=== PATIENT | female | born 1980 | race Caucasian/White ===

== ENCOUNTER 2019-12-24 16:16 | Observation (INO) | payer MEDICARE, MEDICAID ==
[2019-12-24] MEDS ORDERED: KETOROLAC TROMETHAMINE 60 MG/2 ML SDV IM ONE (16:28)
--- NOTE | 2019-12-24 16:36 | ER Document Report ---
ED Medical Screen (RME) - General Chief Complaint: Ankle Pain Stated Complaint: ANKLE INJURY Time Seen by Provider: 12/24/19 16:22 Mode of Arrival: Wheelchair Information source: Patient Notes: 39-year-old female presents with complaints of right ankle pain. Reports she was swinging when the swing broke and she fell on her ankle. Complains of severe right ankle pain reports she has not been able to walk on it. Denies history of past injury to the ankle. Medial swelling noted, deformity I have greeted and performed a rapid initial assessment of this patient. A comprehensive ED assessment and evaluation of the patient, analysis of test results and completion of the medical decision making process will be conducted by additional ED providers. - Related Data Allergies/Adverse Reactions: morphine Allergy (Verified 12/24/19 16:28) Past Medical History - Social History Chew tobacco use (# tins/day): No Frequency of alcohol use: None Drug Abuse: None Physical Exam - Vital signs Vitals: Temp Pulse Resp BP Pulse Ox 98.1 F 112 H 18 147/95 H 97 12/24/19 16:18 12/24/19 16:18 12/24/19 16:18 12/24/19 16:18 12/24/19 16:18 Course - Vital Signs Vital signs: Temp Pulse Resp BP Pulse Ox 98.1 F 112 H 18 147/95 H 97 12/24/19 16:18 12/24/19 16:18 12/24/19 16:18 12/24/19 16:18 12/24/19 16:18
[2019-12-24] MEDS ORDERED: OXYCODONE-ACETAMINOPHEN 5-325 MG TABLET PO ONE (16:42)
[2019-12-24] MEDS ORDERED: ONDANSETRON 4 MG TAB.RAPDIS PO ONE (16:42)
--- NOTE | 2019-12-24 17:12 | RADIOLOGY REPORT (SQ) ---
EXAM DESCRIPTION: ANKLE RIGHT COMPLETE IMAGES COMPLETED DATE/TIME: 12/24/2019 3:45 pm REASON FOR STUDY: right ankle injury COMPARISON: None. NUMBER OF VIEWS: Three views. TECHNIQUE: AP, lateral, and oblique radiographic images acquired of the right ankle. LIMITATIONS: None. FINDINGS: MINERALIZATION: Normal. BONES: There is an acute oblique fracture through the distal fibula metaphysis. Acute horizontal fra cture through the distal medial malleolus. Widening at the medial and lateral malleoli. JOINTS: There is a large ankle joint effusion. SOFT TISSUES: Soft tissue swelling. OTHER: No other significant finding. IMPRESSION: Acute fracture dislocation through the distal fibula and medial malleolus with widening of the medial and lateral ankle mortise space. No significant angulation. TECHNICAL DOCUMENTATION: JOB ID: [id number] 2010 [employer]- All Rights Reserved Reading location - IP/workstation name: [email or web address]
[2019-12-24] MEDS ORDERED: OXYCODONE HCL IR 5 MG TABLET PO PRN (19:34)
[2019-12-24] MEDS ORDERED: MORPHINE SULFATE 10 MG/ML INJ IV PRN (19:37)
--- NOTE | 2019-12-24 20:46 | ER Document Report ---
Entered by FIDELIA ORDOÑEZ SCRIBE 12/24/19 1811 Acting as scribe for:ADEN DODSON MD ED General - General Chief Complaint: Ankle Pain Stated Complaint: ANKLE INJURY Time Seen by Provider: 12/24/19 16:22 Mode of Arrival: Wheelchair Information source: Patient Notes: This 39-year-old female presents to the emergency department complaining of right ankle pain that began about 3 hours ago. Patient said that she was swinging with her 4-year-old son when the swing broke on the downswing going forward. Patient said that she landed on her right ankle and she heard a couple of "pops". She said that her had to pull the van around and she "scooted into the van". Patient has not been able to walk since the incident. Patient denies loss of consciousness or hitting her head. - Related Data Allergies/Adverse Reactions: morphine Allergy (Verified 12/24/19 16:28) Past Medical History - General Information source: Patient - Social History Smoking Status: Never Smoker Cigarette use (# per day): No Chew tobacco use (# tins/day): No Frequency of alcohol use: None Drug Abuse: None Lives with: Family Family History: Reviewed & Not Pertinent Patient has suicidal ideation: No Patient has homicidal ideation: No - Medical History Medical History: Negative Past Surgical History: Reports: Hx Section - x2, Hx Cholecystectomy, Hx Hysterectomy - partial, Hx Orthopedic Surgery Review of Systems - Review of Systems Constitutional: No symptoms reported EENT: No symptoms reported Cardiovascular: No symptoms reported Respiratory: No symptoms reported Gastrointestinal: No symptoms reported Genitourinary: No symptoms reported Female Genitourinary: No symptoms reported Musculoskeletal: See HPI, Deformity - Right ankle, Ankle swelling, Other - Ankle pain Skin: No symptoms reported Hematologic/Lymphatic: No symptoms reported Neurological/Psychological: See HPI. denies: Lost consciousness -: Yes All other systems reviewed and negative Physical Exam - Vital signs Vitals: Temp Pulse Resp BP Pulse Ox 98.1 F 112 H 18 147/95 H 97 12/24/19 16:18 12/24/19 16:18 12/24/19 16:18 12/24/19 16:18 12/24/19 16:18 - Notes Notes: Physical Exam: General: Alert, appears uncomfortable. HEENT: Normocephalic. Atraumatic. PERRL. Extraocular movements intact. Oropharynx clear. Neck: Supple. Non-tender. Respiratory: No respiratory distress. Clear and equal breath sounds bilaterally. Cardiovascular: Regular rate and rhythm. Abdominal: Obese. Non-tender. No distension. Normal Bowel Sounds. Back: No gross abnormalities. Extremities: Upper extremities: Normal inspection. Normal ROM. Lower extremities: No edema. Right lateral malleolus ankle deformity with associated pain to touch and swelling. Limited range of motion secondary to pain in right ankle with the ability to have dorsiflexion and plantar flexion movement. Normal ROM in LLE. Neurological: Normal cognition. AAOx4. Normal speech. Psychological: Normal affect. Normal Mood. Skin: Warm. Dry. Normal color. Course - Re-evaluation Re-evalutation: 12/24/19 20:39 Patient resting comfortably with right foot elevated on pillow. Noted swelling bilateral at the ankle joint with limited range of motion in flexion and extension. No open wounds. Pulse present dorsalis pedis in the right foot. 12/24/19 20:44 Case discussed with who had decided that patient should be admitted to the hospital for inpatient management and surgery in a.m. - Vital Signs Vital signs: Temp Pulse Resp BP Pulse Ox 98.8 F 94 18 105/55 L 98 12/24/19 18:38 12/24/19 18:38 12/24/19 16:18 12/24/19 18:38 12/24/19 18:38 12/24/19 20:40 Vital signs are stable. - Diagnostic Test Radiology reviewed: Image reviewed, Reports reviewed Radiology results interpreted by me: 12/24/19 20:40 Chest x-ray no acute process Right ankle shows fracture dislocation of the ankle joint of the distal lateral malleolus and medial malleolus. Ankle mortise is widened. Procedures - Immobilization Right Posterior Leg Pre-Proc Neuro Vasc Exam: Normal Immobilizer type: Posterior ankle, Sugar tong Performed by: RN Post-Proc Neuro Vasc Exam: Normal Alignment checked and good: No Discharge - Discharge Clinical Impression: Displaced bimalleolar fracture of right ankle Condition: Good Disposition: ADMITTED INPATIENT Admitting Provider: alma Unit Admitted: Surgical Floor I personally performed the services described in the documentation, reviewed and edited the documentation which was dictated to the scribe in my presence, and it accurately records my words and actions.
--- NOTE | 2019-12-24 21:43 | RADIOLOGY REPORT (SQ) ---
EXAM DESCRIPTION: AP portable radiograph of the chest CLINICAL HISTORY: 39 years Female, Pre-op fracture repair COMPARISON: None. FINDINGS: Lungs: Lungs are clear. No pneumonia or edema. No pneumothorax or pleural effusion. Mediastinum: Cardiac and mediastinal silhouette are normal. Bones: Osseous structures are normal. IMPRESSION: Unremarkable single view of the chest
[2019-12-24 22:39] LABS: HEMATOCRIT 40.1 % (36.0-47.0); MEAN CORPUSCULAR HEMOGLOBIN 33.1 pg (27.0-33.4); MEAN CORPUSCULAR VOLUME 95 fl (80-97); PLATELET COUNT 263 10^3/uL (150-450); RED BLOOD COUNT 4.23 10^6/uL (3.72-5.28); RED CELL DISTRIBUTION WIDTH 12.6 % (11.5-14.0); WHITE BLOOD COUNT 11.5 10^3/uL (4.0-10.5)
[2019-12-24 23:00] LABS: ANION GAP 6 (5-19); BLOOD UREA NITROGEN 12 mg/dL (7-20); CALCIUM 9.3 mg/dL (8.4-10.2); CARBON DIOXIDE 27 mmol/L (22-30); CHLORIDE 104 mmol/L (98-107); GLUCOSE 102 mg/dL (75-110); POTASSIUM 4.2 mmol/L (3.6-5.0)
[2019-12-24] MEDS ORDERED: ACETAMINOPHEN 650 MG SUPP.RECT PR PRN ×2 (23:45→23:54)
[2019-12-24] MEDS ORDERED: LORAZEPAM INJ 2 MG/1 ML VIAL IV PRN (23:45)
--- NOTE | 2019-12-24 23:45 | PDOC CONSULTATION ---
Consultation Consult Date: 12/24/19 Attending physician:: ASHU PEREZ JR Provider Consulted: MARLA TONEY Consult reason:: Preoperative medical clearance History of Present Illness Admission Date/PCP: 12/24/19 20:01 Patient complains of: Right ankle pain History of Present Illness: DIEGO RODRIGEZ is a 39 year old female who presented to the emergency room with a 3-hour history of right ankle pain. She was enjoying swimming with her son when the swing broke and she landed on her right ankle causing it to twist awkwardly and make popping sounds. She was unable to bear weight on the right ankle but otherwise sustained no obvious injury. Her right ankle pain is a nonradiating severe sharp grinding in the ankle area. The pain is worsened by movement or attempts at weightbearing and partially relieved by rest and elevation. She denies other associated or accompanying signs and symptoms. She denies prior similar episodes. She has not identified any additional aggravating or ameliorating factors for her right ankle pain. In the emergency room she was found to have a bimalleolar fracture with displacement and broadening of the mortise of the right ankle. Dr. Perez has seen the patient and is planning to perform surgery to repair the fracture tomorrow. Patient is being seen in consultation for Dr. Perez to establish medical clearance for the surgical procedure. Past Medical History Cardiac Medical History: Denies: Atrial Fibrillation, Coronary Artery Disease, DVT, Hyperlipidema, Hypertension, Pulmonary Embolism Pulmonary Medical History: Denies: Asthma, Chronic Obstructive Pulmonary Disease (COPD) EENT Medical History: Reports: Eyes - Wears prescription lenses Denies: Cataracts, Ears - Hearing aids Neurological Medical History: Denies: Hemorrhagic CVA, Ischemic CVA, Seizures Endocrine Medical History: Reports: Obesity Denies: Diabetes Mellitus Type 1, Diabetes Mellitus Type 2, Hyperthyroidism, Hypothyroidism Renal/ Medical History: Denies: Chronic Kidney Disease, Nephrolithiasis Malignancy Medical History: Reports: None GI Medical History: Denies: Cirrhosis, Crohn's Disease, Gastroesophageal Reflux Disease, Hepatitis, Peptic Ulcer Disease, Ulcerative Colitis Musculoskeltal Medical History: Reports: Other - Sciatica following back surgery Denies: Arthritis, Fibromyalgia, Gout Skin Medical History: Denies: Eczema, Psoriasis Psychiatric Medical History: Denies: Alcohol Dependency, Substance Abuse, Tobacco Dependency Traumatic Medical History: Reports: None Hematology: Denies: Anemia, Bleeding Tendencies Infectious Medical History: Reports: None Past Surgical History Past Surgical History: Reports: Section - x2, Cholecystectomy, Hysterectomy - partial, Orthopedic Surgery - Back surgery Social History Information Source: Patient Lives with: Family, Spouse/Significant other Smoking Status: Former Smoker Electronic Cigarette use?: No Frequency of Alcohol Use: Occasional Hx Recreational Drug Use: No Drugs: None Hx Prescription Drug Abuse: No - Advance Directive Resuscitation Status: Full Code Surrogate healthcare decision maker:: Eliezer Rodrigez Family History Family History: Malignancy. denies: Arthritis, CAD, CVA, DM, Hyperlipidemia, Hypertension, Thyroid Disfunction Parental Family History Reviewed: Yes Children Family History Reviewed: No Sibling(s) Family History Reviewed.: Yes Medication/Allergy Home Medications: No Home Medications 12/24/19 Allergies/Adverse Reactions: morphine Allergy (Verified 12/24/19 16:28) Review of Systems Constitutional: ABSENT: chills, fever(s) Eyes: ABSENT: visual disturbances, other - Eye pain Ears: ABSENT: hearing changes, other - Ear pain Nose, Mouth, and Throat: ABSENT: headache(s), sore throat Cardiovascular: ABSENT: chest pain, palpitations Respiratory: ABSENT: cough, dyspnea Gastrointestinal: ABSENT: abdominal pain, constipation, diarrhea, nausea, vomiting Genitourinary: ABSENT: dysuria, hematuria Musculoskeletal: ABSENT: back pain, joint swelling, muscle weakness Integumentary: ABSENT: pruritus, rash Neurological: ABSENT: confusion, convulsions, focal weakness, memory loss, syncope Psychiatric: ABSENT: anxiety, depression Endocrine: ABSENT: cold intolerance, heat intolerance, polydipsia, polyphagia, polyuria Hematologic/Lymphatic: ABSENT: easy bleeding, easy bruising Allergic/Immunologic: ABSENT: seasonal rhinorrhea Physical Exam Vital Signs: Temp Pulse Resp BP Pulse Ox 97.7 F 86 16 136/82 H 97 12/24/19 21:46 12/24/19 21:46 12/24/19 21:46 12/24/19 21:46 12/24/19 21:46 Intake & Output 12/22/19 12/23/19 12/24/19 23:59 23:59 23:59 Weight 92.986 kg General appearance: PRESENT: no acute distress, cooperative, obese Head exam: PRESENT: atraumatic, normocephalic Eye exam: ABSENT: conjunctival injection, scleral icterus Ear exam: PRESENT: normal external ear exam. ABSENT: bleeding, drainage Mouth exam: PRESENT: dry mucosa, neck supple Neck exam: ABSENT: thyromegaly, tracheal deviation Respiratory exam: PRESENT: clear to auscultation yoselin, symmetrical, unlabored Cardiovascular exam: PRESENT: RRR. ABSENT: clicks, gallop, rubs Pulses: PRESENT: normal radial pulses, normal dorsalis pedis pul Vascular exam: PRESENT: normal capillary refill. ABSENT: pallor GI/Abdominal exam: PRESENT: normal bowel sounds, soft. ABSENT: tenderness Rectal exam: PRESENT: deferred Extremities exam: PRESENT: joint swelling - Right ankle, tenderness - Right ankle Musculoskeletal exam: PRESENT: deformity - Right ankle, tenderness - Right ankle. ABSENT: ambulatory - Secondary to pain Neurological exam: PRESENT: alert, oriented to person, oriented to place, o riented to time, oriented to situation, CN II-XII grossly intact. ABSENT: motor sensory deficit Psychiatric exam: PRESENT: appropriate affect, normal mood Skin exam: PRESENT: dry, intact, warm. ABSENT: jaundice, rash, urticaria Results Impressions: Ankle X-Ray 12/24/19 16:27 IMPRESSION: Acute fracture dislocation through the distal fibula and medial malleolus with widening of the medial and lateral ankle mortise space. No significant angulation. Chest X-Ray 12/24/19 19:29 IMPRESSION: Unremarkable single view of the chest Assessment and Plan - Diagnosis (1) Displaced bimalleolar fracture of right ankle Qualifiers: Encounter type: initial encounter Fracture type: closed Qualified Code(s): S82.841A - Displaced bimalleolar fracture of right lower leg, initial encounter for closed fracture Is this a current diagnosis for this admission?: Yes (2) Acute right ankle pain Is this a current diagnosis for this admission?: Yes (3) Leukocytosis Qualifiers: Leukocytosis type: unspecified Qualified Code(s): D72.829 - Elevated white blood cell count, unspecified Is this a current diagnosis for this admission?: Yes (4) Sciatica of left side associated with disorder of lumbar spine Is this a current diagnosis for this admission?: Yes (5) Obesity (BMI 30-39.9) Is this a current diagnosis for this admission?: Yes - Plan Summary Summary: Patient has been admitted to the surgical floor and is receiving routine supportive and symptomatic cares. Dr. Perez will be planning to take the patient to surgery in the morning for repair of her displaced bimalleolar right ankle fracture. I will treat the patient's pain with Dilaudid 0.5 to 2 mg IV every 2 hours using a sliding scale for dosing. Patient will also receive Ativan 2 mg IV every 4 hours as needed for muscle spasm "charley horses" or sciatica symptoms of the left lower extremity. Patient will be n.p.o. after midnight tonight and then should be able to resume a regular diet postoperatively at the surgeon's discretion. Patient will be followed on a daily basis for an appropriate duration. Patient is medically cleared for her surgical procedure (right bimalleolar ankle fracture with displacement repair) on the morning of 12/25/2019. - Time Time Spent with patient: 15-24 minutes Medications reviewed and adjusted accordingly: No - No home meds Anticipated discharge: Home with Homehealth - Inpatient Certification Based on my medical assessment, after consideration of the patient's comorbidit ies, presenting symptoms, or acuity I expect that the services needed warrant INPATIENT care.: Yes I certify that my determination is in accordance with my understanding of [facility]'s requirements for reasonable and necessary INPATIENT services [42 CFR 412.3e].: Yes Medical Necessity: Need for Pain Control, Need for Surgery
[2019-12-24] MEDS: HYDROMORPHONE HCL INJ/PF 2 MG/ML AMPULE IV PRN (23:59)
[2019-12-25] MEDS ORDERED: ACETAMINOPHEN 325 MG TABLET PO SCH
[2019-12-25] MEDS ORDERED: ACETAMINOPHEN 650 MG SUPP.RECT PR SCH
[2019-12-25] MEDS: HYDROMORPHONE HCL INJ/PF 2 MG/ML AMPULE IV PRN (04:02)
[2019-12-25] MEDS ORDERED: PANTOPRAZOLE SODIUM 20 MG TABLET.DR PO SCH (06:00)
[2019-12-25] MEDS ORDERED: KETAMINE HCL INJ 500 MG/10 ML VIAL ONE (08:42)
[2019-12-25] MEDS ORDERED: MIDAZOLAM 2 MG/2 ML INJ ONE (08:42)
[2019-12-25] MEDS ORDERED: PROPOFOL INJ 200 MG/20 ML VIAL IV ONE (08:42)
[2019-12-25] MEDS ORDERED: BUPIVACAINE HCL 0.5 % INJ/PF 30 ML SDV ONE (08:48)
[2019-12-25] MEDS ORDERED: LIDOCAINE 1% INJ-PF (10 MG/ML) 30 ML SDV ONE (08:48)
[2019-12-25] MEDS ORDERED: ONDANSETRON HCL INJ/PF 4 MG/2 ML SDV ONE (08:56)
[2019-12-25] MEDS ORDERED: METOCLOPRAMIDE HCL INJ/PF 10 MG/2 ML SDV ONE (08:57)
[2019-12-25] MEDS ORDERED: FAMOTIDINE INJ/PF 20 MG/2 ML SDV IV ONE (08:57)
[2019-12-25] MEDS ORDERED: CEFAZOLIN 2 GM/D5W RTU 2 GM/50 ML RTUPB IV ONE (09:02)
--- NOTE | 2019-12-25 09:02 | PDOC H&P ---
History of Present Illness Admission Date/PCP: 12/24/19 20:01 History of Present Illness: DIEGO FIGUEROA is a 39 year old female after slipping and falling at home near her swimming pool where she twisted her ankle and felt a pop. She was unable to bear weight and had immediate swelling and deformity of her right ankle. The pain is an 8 out of 10 with any motion, improved with rest, improved with pain medication. Described as tooth ache and sometimes extremely sharp pain localize d to the right ankle. She denies any other associated injury, denies pre-injury syncopal or other altered etiology, denies head injury, denies current headache. She has no other recent illnesses and takes no medications and has no other prior medical history. Past Medical History Medical History: None Cardiac Medical History: Denies: Atrial Fibrillation, Coronary Artery Disease, DVT, Hyperlipidema, Hypertension, Pulmonary Embolism Pulmonary Medical History: Denies: Asthma, Chronic Obstructive Pulmonary Disease (COPD) EENT Medical History: Reports: Eyes - Wears prescription lenses Denies: Cataracts, Ears - Hearing aids Neurological Medical History: Denies: Hemorrhagic CVA, Ischemic CVA, Seizures Endocrine Medical History: Reports: Obesity Denies: Diabetes Mellitus Type 1, Diabetes Mellitus Type 2, Hyperthyroidism, Hypothyroidism Renal/ Medical History: Denies: Chronic Kidney Disease, Nephrolithiasis Malignancy Medical History: Reports: None GI Medical History: Denies: Cirrhosis, Crohn's Disease, Gastroesophageal Reflux Disease, Hepatitis, Peptic Ulcer Disease, Ulcerative Colitis Musculoskeltal Medical History: Reports: Other - Sciatica following back surgery Denies: Arthritis, Fibromyalgia, Gout Skin Medical History: Denies: Eczema, Psoriasis Psychiatric Medical History: Denies: Alcohol Dependency, Depression, Substance Abuse, Tobacco Dependency Traumatic Medical History: Reports: None Hematology: Denies: Anemia, Bleeding Tendencies Infectious Medical History: Reports: None Past Surgical History Past Surgical History: Reports: Section - x2, Cholecystectomy, Hysterectomy - partial, Orthopedic Surgery - Back surgery Social History Information Source: Patient Lives with: Family, Spouse/Significant other Smoking Status: Former Smoker Electronic Cigarette use?: No Frequency of Alcohol Use: Occasional Hx Recreational Drug Use: No Drugs: None Hx Prescription Drug Abuse: No - Advance Directive Resuscitation Status: Full Code Family History Family History: Malignancy. denies: Arthritis, CAD, CVA, DM, Hyperlipidemia, Hypertension, Thyroid Disfunction Parental Family History Reviewed: No Children Family History Reviewed: NA Sibling(s) Family History Reviewed.: NA Medication/Allergy Home Medications: No Home Medications 12/24/19 Allergies/Adverse Reactions: morphine Allergy (Verified 12/24/19 16:28) Review of Systems Review of Systems: Constitutional: ABSENT: anorexia, chills, night sweats Cardiovascular: ABSENT: chest pain Respiratory: ABSENT: dyspnea Gastrointestinal: ABSENT: vomiting Genitourinary: ABSENT: dysuria Integumentary: ABSENT: rash Neurological: ABSENT: confusion, memory loss, numbness Psychiatric: ABSENT: hallucinations Hematologic/Lymphatic: ABSENT: easy bleeding All negative as above aside from that reported in the HPI, she does report occasional muscle spasms and shooting pain associated with left-sided sciatica Physical Exam Vital Signs: Temp Pulse Resp BP Pulse Ox 98.8 F 91 16 129/68 H 96 12/25/19 08:00 12/25/19 08:00 12/25/19 08:00 12/25/19 08:00 12/25/19 08:00 Intake & Output 12/24/19 12/25/19 12/26/19 06:59 06:59 06:59 Output Total 0 Balance 0 Weight 95.8 kg Physical Exam: General appearance: PRESENT: no acute distress, cooperative, well-nourished, obese Head exam: PRESENT: atraumatic, normocephalic Eye exam: PRESENT: EOMI Ear exam: PRESENT: normal external ear exam Mouth exam: PRESENT: neck supple Neck exam: ABSENT: tracheal deviation Respiratory exam: PRESENT: symmetrical, unlabored. ABSENT: accessory muscle use, wheezes Pulses: PRESENT: normal radial pulses, normal dorsalis pedis pulse Vascular exam: PRESENT: normal capillary refill GI/Abdominal exam: ABSENT: distended, firm Extremities exam: PRESENT: full ROM of bilateral shoulders, elbows wrists, knees, hips and ankles without pain Musculoskeletal exam: PRESENT: full ROM, normal inspection of all 4 extremities aside from that noted below. Neurological exam: PRESENT: alert, awake, oriented to person, oriented to place, oriented to time Psychiatric exam: PRESENT: appropriate affect. ABSENT: agitated Focused psych exam: ABSENT: catatonic Skin exam: PRESENT: intact. ABSENT: dry All as above aside from that noted in the HPI and the following: Right lower extremity Currently in a splint, sensation is grossly intact all toes, she moves all toes, capillary refill is less than 2 seconds Left lower extremity Neurovascular intact Results Laboratory Results: 12/24/19 22:23 12/24/19 22:23 12/24/19 12/24/19 22:23 22:23 WBC 11.5 H RBC 4.23 Hgb 14.0 Hct 40.1 MCV 95 MCH 33.1 MCHC 35.0 RDW 12.6 Plt Count 263 Sodium 137.4 Potassium 4.2 Chloride 104 Carbon Dioxide 27 Anion Gap 6 BUN 12 Creatinine 0.59 Est GFR ( Amer) > 60 Glucose 102 Calcium 9.3 Impressions: Ankle X-Ray 12/24/19 16:27 IMPRESSION: Acute fracture dislocation through the distal fibula and medial malleolus with widening of the medial and lateral ankle mortise space. No significant angulation. Chest X-Ray 12/24/19 19:29 IMPRESSION: Unremarkable single view of the chest Assessment & Plan - Diagnosis (1) Acute right ankle pain Is this a current diagnosis for this admission?: Yes Plan: At this time the patient is scheduled for open reduction internal fixation of her right bimalleolar ankle fracture (2) Displaced bimalleolar fracture of right ankle Qualifiers: Encounter type: initial encounter Fracture type: closed Qualified Code(s): S82.841A - Displaced bimalleolar fracture of right lower leg, initial encounter for closed fracture Plan: The patient is n.p.o. for surgery this morning After surgery will place the patient in a splint, she will be able to be discharged home, she is to keep the splint clean and dry She is to follow-up in our office in 10 days for suture removal Nonweightbearing right lower extremity Keep right lower extremity elevated, take appropriate pain medication, ice as needed. 2 g Ancef postop x2
[2019-12-25] MEDS ORDERED: CEFAZOLIN INJ 1 GM VIAL ONE (09:04)
[2019-12-25] MEDS ORDERED: OXYCODONE HCL IR 5 MG TABLET PO PRN (09:29)
[2019-12-25] MEDS ORDERED: PROMETHAZINE HCL INJ 25 MG/1 ML VIAL IV PRN (09:34)
[2019-12-25] MEDS ORDERED: MEPERIDINE HCL/PF INJ 25 MG/1 ML DISP.SYRIN IV PRN (09:34)
[2019-12-25] MEDS ORDERED: FENTANYL CITRATE INJ/PF 100 MCG/2 ML AMPUL IV PRN ×3 (09:34)
[2019-12-25] MEDS ORDERED: DIPHENHYDRAMINE HCL 50 MG/ML VIAL IV PRN (09:34)
[2019-12-25] MEDS ORDERED: ASPIRIN 325 MG TABLET, ENT COATED PO SCH (10:00)
[2019-12-25] MEDS ORDERED: DOCUSATE SODIUM 100 MG CAPSULE PO SCH (10:00)
--- NOTE | 2019-12-25 10:51 | EKG REPORT ---
SEVERITY:- NORMAL ECG - SINUS RHYTHM : Confirmed by: Flex Skaggs 25-Dec-2019 10:49:30
[2019-12-25] MEDS ORDERED: FENTANYL CITRATE INJ/PF 100 MCG/2 ML AMPUL ONE (11:06)
--- NOTE | 2019-12-25 11:16 | Operative Report ---
Operative Report DATE OF SURGERY: 12/25/19 PREOPERATIVE DIAGNOSIS: Right bimalleolar ankle fracture OPERATION: Right bimalleolar ankle fracture open reduction internal fixation SURGEON: ASHU ÁLVAREZ JR ANESTHESIA: Spinal COMPLICATIONS: None ESTIMATED BLOOD LOSS: 10 cc PROCEDURE: They were brought to the operating suite and placed under final anesthesia. The splint was removed and skin was confirmed to be intact and was healthy for operative treatment. They were prepped and draped in standard sterile fashion. They were provided with 2 g of Ancef pre-operatively. After an appropriate timeout the limb was exsanguinated with Esmarch and tourniquet was inflated followed by incision to the lateral malleolus. Careful dissection was performed until the fracture was exposed. Due to the findings of an oblique fracture that was above the syndesmosis, technique performed was lag screw followed by a neutralization plate that was non-periarticular. This was all performed with the assistance of fluoroscopy. The fracture had a small butterfly fragment, however after direct reduction with a visual win was held in place by a lobster claw. A lag screw was able to be placed across the fracture site and maintained anatomic reduction even with removal of the lobster claw. The plate was then applied and the most distal screw was left vacant for the potential need of a syndesmotic screw later after excellent reduction and plate application all screws were tightened appropriately. After this we turned our attention to the medial malleolus. An incision was made to provide for ample visualization of the anterior medial malleolar shoulder. Under direct visualization this fragment was keyed in. This win was held in place with a dental pick while 2 K wires were placed across the fracture. Fluoroscopy was used to ensure appropriate position of the wires and excellent reduction. Following this cannulated screws were then inserted over the wires. Following this, an external rotation stress test was performed and found the syndesmosis to be intact. We then returned our attention to the lateral malleolus where the most distal screw was then placed through the fibula, sparing a syndesmotic screw. The wounds were copiously irrigated with sterile saline solution. 2-0 Monocryl was utilized to draw the deep fascia over the lateral plate. Following this 2-0 Monocryl was utilized for the subcutaneous layer followed by a running horizontal mattress type III 0 nylon in the skin. Medially the skin was closed with 2-0 Monocryl subcutaneously followed by 3-0 nylon horizontal running mattress. Xeroform was placed over the wounds followed by 4 x 4's soft roll plaster posterior U type splint and Zachary wrap. The patient tolerated the proced ure well and was transferred to the PACU in stable condition.
--- NOTE | 2019-12-25 11:49 | RADIOLOGY REPORT (SQ) ---
EXAM DESCRIPTION: ANKLE RIGHT AP/LATERAL; NO CHG FLUORO IMAGES COMPLETED DATE/TIME: 12/25/2019 10:43 am REASON FOR STUDY: OR COMPARISON: Right ankle three views 12/24/2019 FLUOROSCOPY TIME: 0.2 minutes 5 digital fluoroscopic images saved to PACS. TECHNIQUE: Intra-operative images acquired during surgical procedure to evaluate progress. NUMBER OF IMAGES: 5 fluoroscopic images LIMITATIONS: None. FINDINGS: Intra procedural imaging and fluoro during ORIF bimalleolar fracture in good alignment. P lease see the operative report for further details IMPRESSION: IMAGE(S) OBTAINED DURING PROCEDURE. COMMENT: Quality ID [id number]: Final reports for procedures using fluoroscopy that document radiation exp osure indices, or exposure time and number of fluorographic images (if radiation exposure indices are not available) Please consult full operative report of the attending physician for description of the procedure. TECHNICAL DOCUMENTATION: JOB ID: [id number] 2010 [employer]- All Rights Reserved Reading location - IP/workstation name: [email or web address]
--- NOTE | 2019-12-25 11:49 | RADIOLOGY REPORT (SQ) ---
EXAM DESCRIPTION: ANKLE RIGHT AP/LATERAL; NO CHG FLUORO IMAGES COMPLETED DATE/TIME: 12/25/2019 10:43 am REASON FOR STUDY: OR COMPARISON: Right ankle three views 12/24/2019 FLUOROSCOPY TIME: 0.2 minutes 5 digital fluoroscopic images saved to PACS. TECHNIQUE: Intra-operative images acquired during surgical procedure to evaluate progress. NUMBER OF IMAGES: 5 fluoroscopic images LIMITATIONS: None. FINDINGS: Intra procedural imaging and fluoro during ORIF bimalleolar fracture in good alignment. P lease see the operative report for further details IMPRESSION: IMAGE(S) OBTAINED DURING PROCEDURE. COMMENT: Quality ID [id number]: Final reports for procedures using fluoroscopy that document radiation exp osure indices, or exposure time and number of fluorographic images (if radiation exposure indices are not available) Please consult full operative report of the attending physician for description of the procedure. TECHNICAL DOCUMENTATION: JOB ID: [id number] 2010 [employer]- All Rights Reserved Reading location - IP/workstation name: [email or web address]
[2019-12-25] MEDS ORDERED: OXYCODONE-ACETAMINOPHEN 5-325 MG TABLET ONE (12:23)
--- NOTE | 2019-12-25 12:50 | RADIOLOGY REPORT (SQ) ---
EXAM DESCRIPTION: ANKLE RIGHT COMPLETE IMAGES COMPLETED DATE/TIME: 12/25/2019 12:17 pm REASON FOR STUDY: post op COMPARISON: Right ankle films 12/24/2019 NUMBER OF VIEWS: Three views. TECHNIQUE: AP, lateral, and oblique radiographic images acquired of the right ankle. LIMITATIONS: Plaster splint FINDINGS: MINERALIZATION: Normal. BONES: Post ORIF of distal fibular spiral fracture and medial malleolar fracture in good alignment. JOINTS: Normal alignment at the ankle mortise. SOFT TISSUES: No soft tissue swelling. No foreign body. OTHER: No other significant finding. IMPRESSION: Post ORIF of distal fibular spiral fracture and medial malleolar fracture in good alignm ent TECHNICAL DOCUMENTATION: JOB ID: [id number] 2010 [employer]- All Rights Reserved Reading location - IP/workstation name: [email or web address]
[2019-12-25] MEDS ORDERED: KETOROLAC TROMETHAMINE INJ/PF 30 MG/1 ML SDV ONE (13:05)
[2019-12-25 16:11] VITALS: BP 115/78
--- NOTE | 2019-12-26 15:31 | Discharge Summary ---
Discharge Summary (SDC) - Discharge Final Diagnosis: Right bimalleolar ankle fracture Date of Surgery: 12/25/19 Discharge Date: 12/25/19 Condition: Good Forms: ASU Anesthesia D/C Instruction, Discharge POC-Surgical Service Treatment or Instructions: The patient is to keep her right lower extremity elevated, ice it regularly, maintain the splint and keep it clean and dry. She is to follow with me in the office and call for an appointment at [facility] to see me in 10 days for suture removal She is to take pain medication as prescribed. She is to avoid any weightbearing of the right lower extremity until cleared by me from the office. Prescriptions: Oxycodone HCl [Oxy-Ir 5 mg Tablet] 5 mg PO Q4HP PRN #20 tab PRN Reason: Pain Scale Of 4 Referrals: ASHU ÁLVAREZ JR, DO [ACTIVE PROVISIONAL STAFF] - (We will make an appointment for you and contact you with the date and time. Thank you and have a great day! ) Respiratory Treatments at Home: Deep Breathing/Coughing Discharge Activity: Activity As Tolerated, No Driving, Keep Legs Elevated, No Lifting/Push/Pulling Home Care Assistance: None Needed Adaptive Devices on Discharge: Axillary Crutches Report the Following to Your Physician Immediately: Shortness of Breath, Fever over 101 Degrees, Unusual Bleeding, Drainage-Yellow
== END 2019-12-25 14:13 | disposition home or self-care (01) ==
LOC: ER 16:16 → EH 20:01 → 4S 22:10
PROVIDERS: ADMIT Orthopaedic Surgery; ATTEND Orthopaedic Surgery
DX: S82.841A Displaced bimalleolar fracture of right lower leg, initial encounter for closed fracture (principal); W09.1XXA Fall from playground swing, initial encounter; X50.1XXA Overexertion from prolonged static or awkward postures, initial encounter; Y93.89 Activity, other specified; E66.9 Obesity, unspecified; D72.829 Elevated white blood cell count, unspecified; Z68.39 Body mass index [BMI] 39.0-39.9, adult; M96.89 Other intraoperative and postprocedural complications and disorders of the musculoskeletal system; M54.32 Sciatica, left side; Y83.8 Other surgical procedures as the cause of abnormal reaction of the patient, or of later complication, without mention of misadventure at the time of the procedure; Z87.891 Personal history of nicotine dependence
CPT/HCPCS: 27814; 29515; C1776; 01480; 36415; 71045; 80048; 81025; 85027; 93005; 93010; 99284; C1713; G0378; J0690; J1170; J1885; J2250; J2405; J2704; J2765; J3010; J3490; S0028; S0119